=== PATIENT | female | born 1960 | race Native Hawaiian/Other Pacific Islander ===

== ENCOUNTER 2021-11-07 21:19 | Emergency (ER) | payer OTHER ==
[~2021-11-07] VITALS: Ht 160 cm; Wt 149.7 kg
[2021-11-07 21:19] VITALS: TEMP 98.7
[2021-11-07 21:55] LABS: POTASSIUM 3.2 mmol/L (3.6-5.2)
[2021-11-07 21:57] LABS: PLATELET COUNT 208 K/uL (152-353)
[2021-11-07 22:46] VITALS: BP 163/82
[2021-11-10] MEDS ORDERED: AMLODIPINE BESYLATE PO (11:48)
[2021-11-10] MEDS ORDERED: BUSPIRONE15 MG PO (11:49)
[2021-11-10] MEDS ORDERED: CLARITIN-D 24 HR PO (11:53)
[2021-11-10] MEDS ORDERED: DEXL60CA4 PO (11:53)
[2021-11-10] MEDS ORDERED: APIX1TAB PO (11:54)
[2021-11-10] MEDS ORDERED: FERROUS SULF325 M1 PO (11:55)
[2021-11-10] MEDS ORDERED: FLONASE AL50 MCG/ACT NAS (11:57)
[2021-11-10] MEDS ORDERED: GABA300C2 PO (11:58)
[2021-11-10] MEDS ORDERED: FURO40TA93 PO (11:58)
[2021-11-10] MEDS ORDERED: ZIPR20IN IM (12:00)
[2021-11-10] MEDS ORDERED: GLUCAGON1 M1 IM (12:01)
[2021-11-10] MEDS ORDERED: GLYCOLAX17 GM/SCOO PO (12:03)
[2021-11-10] MEDS ORDERED: INSULIN LISPRO SC (12:05)
[2021-11-10] MEDS ORDERED: LINZESS145 MCG PO (12:07)
[2021-11-10] MEDS ORDERED: METO50TA63 PO (12:08)
[2021-11-10] MEDS ORDERED: ATIVAN2 M1 PO (12:08)
[2021-11-10] MEDS ORDERED: MINER PO (12:10)
[2021-11-10] MEDS ORDERED: MULTIVITAMIN PO (12:10)
[2021-11-10] MEDS ORDERED: MYRBETRIQ50 MG PO (12:11)
[2021-11-10] MEDS ORDERED: OXYC5TAB24 PO (12:11)
[2021-11-10] MEDS ORDERED: CRESTOR5 MG PO (12:12)
[2021-11-10] MEDS ORDERED: SENNA PLUS 50-81 CAP PO (12:13)
[2021-11-10] MEDS ORDERED: TOLT4CAP2 PO (12:14)
[2021-11-10] MEDS ORDERED: TRAZODONE300 MG PO (12:15)
[2021-11-10] MEDS ORDERED: VENLAFAXINE PO (12:16)
[2021-11-10] MEDS ORDERED: LYUMJEV100 UNIT/M SC (12:45)
== END 2021-11-07 22:46 | disposition still patient (30) ==
LOC: ED 21:19
PROVIDERS: Hospitalist
DX: F25.8 Other schizoaffective disorders (principal); R44.0 Auditory hallucinations; R45.851 Suicidal ideations; Z11.52 Encounter for screening for COVID-19; Z04.6 Encounter for general psychiatric examination, requested by authority
CPT/HCPCS: 36415; 80053; 85027; 87635; 93005; 99283; U0003